=== PATIENT | female | born 1950 | race Caucasian/White ===

== ENCOUNTER → 2016-11-24 | Day surgery (SDC) | payer MEDICARE, OTHER ==
[~2016-11-24] MED LIST: BUPIVACAINE/EPINEPHRINE 0.25% 50 ML VIAL ONE; KETOROLAC TROMETHAMINE 30 MG/ML (IVP) VIAL IV PUSH ONE; LACTATED RINGER'S 1000 ML INJ 1,000 ML ONE; MEPERIDINE HCL 25 MG/ML VIAL ONE; NAPR500 PO; ONDANSETRON HCL 4 MG/2 ML VIAL IV PUSH ONE; PROPOFOL 200 MG/20 ML AMP IV ONE; ceFAZolin 2 GM PREMIX 50 ML ONE; metroNIDAZOLE 500 MG INJ 100 ML IV ONE; traMADol HCL 50 MG TAB ONE
--- NOTE | 2016-11-24 13:40 | TN ---
cc: VINCENT ARCE M.D. DATE OF SURGERY: 11/24/2016 PREOPERATIVE DIAGNOSIS Chronic cholecystitis. POSTOPERATIVE DIAGNOSIS Chronic cholecystitis. PROCEDURE PERFORMED Laparoscopic cholecystectomy. SURGEON Vincent Arce POLISHING WHEEL SETTER JEFF Jon ANESTHESIA General. COMPLICATIONS None. INDICATION FOR PROCEDURE Ms. Brito is a very pleasant 66-year-old female who has had multiple episodes of significant right upper quadrant abdominal pain after eating. She has tried multiple home remedies and unfortunately her pain has persisted. She underwent an ultrasound which showed gallstones with thickened gallbladder wall. She was advised to seek a surgical opinion. She was seen and evaluated in the office and offered elective cholecystectomy. The risks and benefits of open and laparoscopic cholecystectomy was discussed with her and she was agreeable. DETAILS OF PROCEDURE The patient was identified, brought to the operating room and placed supine on the operating table. After adequate general anesthesia was achieved, the anterior abdomen was prepped and draped in a standard surgical fashion. The supraumbilical space was anesthetized with 0.25% Marcaine. A supraumbilical incision was made. Dissection was carried down from the subcutaneous tissue to the midline fascia. The midline fascia was then incised sharply. A finger was then placed in the peritoneal cavity without difficulty. A blunt balloon trocar was inserted and the abdomen was insufflated to 15 mmHg using CO2 gas. Next, two 5 mm trocars were placed in the right upper quadrant after anesthetizing the skin and subcutaneous tissue with 0.25% Marcaine. Both trocars were placed under direct vision. Attention was directed to the gallbladder which was grasped and elevated cephalad. The gallbladder neck was then carefully dissected. The cystic artery and cystic duct were clearly identified in two planes. Once they were seen in two planes and entering the neck of the gallbladder they were clipped twice proximally, once distally and then divided. The gallbladder was then dissected out of the hepatic fossa using electrocautery Bovie. The gallbladder was then placed into an Endopouch bag and brought out the supraumbilical port. The gallbladder was inspected and noted to be distended with clips in place on the cystic duct stump without evidence of leakage of bile. The gallbladder was sent to pathology for analysis. Next, the abdominal cavity was re-visualized. The liver bed was completely hemostatic. Clips were in place on the cystic artery and cystic duct stump and there was no evidence of leakage of bile and no bleeding. 0.25% Marcaine was injected at the operative site. All trocars were then removed under direct vision. The midline fascia was repaired with 0 Vicryl in a [id number] fashion. The skin was closed with 4-0 Vicryl. The patient tolerated the procedure well, was awakened and brought to Recovery in stable condition Please note the presence of the SENIOR IT SECURITY ANALYST golf course assistant was medically necessary due the complexity of the surgical procedure. She has extensive knowledge of my surgical technique. MD NORMAN Gregorio/YONAS /1:23 PM /1:31 PM MTDMc
== END | disposition home or self-care (01) ==
LOC: ESDC 09:08
PROVIDERS: ATTEND Surgery Trauma Surgery
DX: K80.10 Calculus of gallbladder with chronic cholecystitis without obstruction (principal)
CPT/HCPCS: 00790; 47562; 88304; J0690; J1885; J2175; J2405; J3010; J7120